=== PATIENT | female | born 1955 | race Caucasian/White ===

== ENCOUNTER → 2017-05-26 | Outpatient (REF) | payer OTHER | LOC: M LAB REF 09:34 | DX: R30.0 Dysuria (principal) ==

== ENCOUNTER → 2017-12-05 | Outpatient (REF) | payer OTHER | LOC: M LAB REF 09:38 | DX: R30.0 Dysuria (principal) ==

== ENCOUNTER → 2021-09-23 | Outpatient (CLI) | payer OTHER ==
[2021-09-23 13:57] LABS: BASO % 0.8 % (0.0-1.0); HEMATOCRIT 43.3 % (36.0-47.0); HEMOGLOBIN 14.8 g/dl (12.0-15.5); LYMPH # 1.8 10^3/uL (1.5-5.0); LYMPH % 36.4 % (24.0-44.0); MEAN CORPUSCULAR HEMOGLOBIN 30.5 pg (27.0-33.0); MEAN CORPUSCULAR HGB CONC 34.2 g/dl (32.0-36.5); MEAN CORPUSCULAR VOLUME 89.1 fl (80.0-96.0); MONO # 0.3 10^3/uL (0.0-0.8); MONO % 6.5 % (2.0-8.0); NEUTROPHILS # 2.8 10^3/uL (1.5-8.5); NEUTROPHILS % 56.1 % (36.0-66.0); PLATELET COUNT, AUTOMATED 283 10^3/uL (150-450); RED BLOOD COUNT 4.86 10^6/uL (4.00-5.40); WHITE BLOOD COUNT 5.1 10^3/uL (4.0-10.0)
[2021-09-23 15:58] LABS: ALBUMIN 4.6 GM/DL (3.2-5.2); ALT/SGPT 26 U/L (12-78); BILIRUBIN,TOTAL 0.5 MG/DL (0.2-1.0); BLOOD UREA NITROGEN 13 MG/DL (7-18); CALCIUM LEVEL 10.3 MG/DL (8.8-10.2); CARBON DIOXIDE LEVEL 28 MEQ/L (21-32); CHLORIDE LEVEL 106 MEQ/L (98-107); CHOLESTEROL LEVEL 238 MG/DL (<200); CHOLESTEROL RISK RATIO 2.975 (<5); CREATININE FOR GFR 0.65 MG/DL (0.55-1.30); FREE T4 1.07 NG/DL (0.76-1.46); GLOMERULAR FILTRATION RATE > 60.0 (>45); GLUCOSE, FASTING 91 MG/DL (70-100); HDL CHOLESTEROL 80 MG/DL (>40); LDL CHOLESTEROL 143 MG/DL (<100); NON-HDL-C 158 MG/DL; POTASSIUM SERUM 4.1 MEQ/L (3.5-5.1); SODIUM LEVEL 142 MEQ/L (136-145); TOTAL PROTEIN 7.5 GM/DL (6.4-8.2); TRIGLYCERIDES LEVEL 74 MG/DL (<150)
[2021-09-23 16:03] LABS: TOTAL 25(OH) VITAMIN D 67.8 NG/ML (30.0-100.0)
== END ==
LOC: M PLALAB 12:05
PROVIDERS: ATTEND Nurse Practitioner Adult Health
DX: Z13.220 Encounter for screening for lipoid disorders (principal); Z13.29 Encounter for screening for other suspected endocrine disorder; Z13.228 Encounter for screening for other metabolic disorders

== ENCOUNTER → 2023-03-12 | Outpatient (CLI) | payer MEDICARE, BC, OTHER | LOC: M PLAIMG 08:46 | PROVIDERS: ATTEND Family Medicine | DX: M25.561 Pain in right knee (principal); M25.562 Pain in left knee; M76.891 Other specified enthesopathies of right lower limb, excluding foot; M76.892 Other specified enthesopathies of left lower limb, excluding foot ==

== ENCOUNTER → 2023-09-23 | Outpatient (CLI) | payer MEDICARE, BC | LOC: M WHC 09:52 | PROVIDERS: ATTEND Nurse Practitioner Adult Health | DX: Z12.31 Encounter for screening mammogram for malignant neoplasm of breast (principal); Z13.820 Encounter for screening for osteoporosis; M85.89 Other specified disorders of bone density and structure, multiple sites; R92.323 Mammographic fibroglandular density, bilateral breasts ==

== ENCOUNTER → 2025-04-14 | Outpatient (REF) | payer MEDICARE, BC | LOC: M LAB REF 15:05 | PROVIDERS: ATTEND Family Medicine | DX: N39.0 Urinary tract infection, site not specified (principal) ==